=== PATIENT | male | born 1985 | race African-American/Black ===

== ENCOUNTER 2021-12-28 23:11 | Emergency (ER) | payer MEDICAID, OTHER ==
[~2021-12-28] VITALS: Ht 180.3 cm; Wt 75.0 kg
[2021-12-28] MEDS ORDERED: BACITRACIN ZINC OINT UDPKT TOP ONE (23:45)
[2021-12-28] MEDS ORDERED: SILVER SULFADIAZINE 1% CREAM 25GM TOP ONE (23:45)
[2021-12-28] MEDS ORDERED: IBUPROFEN 600MG TABLET PO ONE (23:45)
[2021-12-29] VITALS: BP 131/82
[2021-12-29] MEDS ORDERED: SILV20CR13 TP (00:59)
[2021-12-29] MEDS ORDERED: IBUP-2028 MT (00:59)
== END 2021-12-29 01:35 | disposition home or self-care (01) ==
LOC: ER 23:11
DX: S00.81XA Abrasion of other part of head, initial encounter (principal); T21.16XA Burn of first degree of male genital region, initial encounter; W18.39XA Other fall on same level, initial encounter; Y93.89 Activity, other specified; Y92.89 Other specified places as the place of occurrence of the external cause; Y99.8 Other external cause status; T31.0 Burns involving less than 10% of body surface; X08.8XXA Exposure to other specified smoke, fire and flames, initial encounter; F12.10 Cannabis abuse, uncomplicated
CPT/HCPCS: 16000; 71045; 99284

== ENCOUNTER 2022-12-18 08:28 | Emergency (ER) | payer MEDICAID ==
[~2022-12-18] VITALS: Ht 180.3 cm; Wt 77.0 kg
[~2022-12-18 08:28] MED LIST: IBUP-2028 MT; SILV20CR13 TP
[2022-12-18 08:35] VITALS: TEMP 98.7; O2SAT 99
[2022-12-18 09:30] VITALS: BP 104/72; PULSE 81; RESP 16
[2022-12-18] MEDS ORDERED: KETOROLAC 60MG/2ML VIAL IM ONE (09:30)
[2022-12-18] MEDS ORDERED: DEXAMETHASONE 10 MG/ML VIAL IM ONE (09:30)
[2022-12-18] MEDS ORDERED: IBUP-2029 MT (10:25)
== END 2022-12-18 10:42 | disposition home or self-care (01) ==
LOC: ER 09:01
DX: J02.9 Acute pharyngitis, unspecified (principal); Z00.00 Encounter for general adult medical examination without abnormal findings; F12.10 Cannabis abuse, uncomplicated
CPT/HCPCS: 87430; 87070; 96372; 99284; J1100; J1885; Z7610